=== PATIENT | male | born 1975 | race Hispanic/Latino ===

== ENCOUNTER 2024-07-31 06:33 | Day surgery (SDC) | payer OTHER ==
[2024-07-21 11:15] VITALS: BMI 31.9
[2024-07-31] MEDS ORDERED: Bacitracin Zinc Ointment 30 gm TUBE ONE (08:39)
[2024-07-31] MEDS ORDERED: Bupivacaine 0.25% HCL 30 ML VIAL ONE (08:39)
[2024-07-31] MEDS ORDERED: PROPOFOL 20 ML ONE ×2 (08:59→09:24)
[2024-07-31] MEDS ORDERED: fentaNYL PF 100 MCG/2 ML SYRINGE ONE (09:03)
[2024-07-31] MEDS ORDERED: Lidocaine 1% PF 5 ML VIAL ONE (09:11)
[2024-07-31] MEDS ORDERED: Ondansetron PF 4 MG/2 ML Vial ONE (09:11)
[2024-07-31] MEDS ORDERED: Dexamethasone 20 MG/5 ML VIAL ONE (09:11)
[2024-07-31] MEDS ORDERED: SUCCINYLCHOLINE/SOD CL,ISO/PF 200 MG/10 ML SYRINGE FS ONE (09:24)
[2024-07-31] MEDS ORDERED: Glycopyrrolate 0.2 MG/ML 5 ML SYRINGE ONE (09:26)
[2024-07-31] MEDS ORDERED: CEFAZOLIN 1 GM VIAL ONE (09:29)
[2024-07-31] MEDS ORDERED: PHENYLEPHRINE-NS 100 MCG/ML 10 ML SYRINGE ONE (09:38)
== END 2024-07-31 13:00 | disposition home or self-care (01) ==
LOC: SDC 06:33
PROVIDERS: ATTEND Urology
PROC: 0VTTXZZ Resection of Prepuce, External Approach (ICD-10-PCS; principal; 2024-07-31)
DX: N47.1 Phimosis (principal); I10 Essential (primary) hypertension; N47.7 Other inflammatory diseases of prepuce; L90.0 Lichen sclerosus et atrophicus
CPT/HCPCS: 88304; J0665; J0690; J1100; J2405; J2704